=== PATIENT | female | born 1990 | race Caucasian/White ===

== ENCOUNTER 2016-05-20 20:24 | Emergency (ER) | payer SELFPAY ==
[~2016-05-20] VITALS: Ht 162.6 cm; Wt 52.9 kg
--- NOTE | 2016-05-20 20:53 | NUR ---
Left arm 12" around at swollen site. Right arm 8" around approximately same site of left arm.
[2016-05-20] MEDS ORDERED: CLINDAMYCIN 150 MG (CLEOCIN) CAP PO ONE ×2 (21:00→21:10)
[2016-05-20 21:30] VITALS: BP 111/57
== END 2016-05-20 21:31 | disposition home or self-care (01) ==
LOC: ED 20:27
DX: L03.113 Cellulitis of right upper limb (principal)
CPT/HCPCS: 87070; 99283

== ENCOUNTER 2016-05-31 22:58 | Emergency (ER) | payer SELFPAY ==
[~2016-05-31] VITALS: Ht 162.6 cm; Wt 50.0 kg
[2016-06-01] MEDS ORDERED: SODIUM CHLORIDE FLUSH 10 ML SYR IV PRN (00:50)
[2016-06-01] MEDS ORDERED: SODIUM CHLORIDE FLUSH 3 ML SYR IV PRN (00:50)
[2016-06-01] MEDS ORDERED: HYDROcodone/APAP 5 MG/325 MG (NORCO) TAB PO ONE (01:10)
[2016-06-01 01:20] LABS: BASOPHILS % (AUTO) 1 % (0-2); EOSINOPHILS # (AUTO) 0.2 10^3uL; EOSINOPHILS % (AUTO) 2 % (0-4); LYMPHOCYTES # (AUTO) 2.3 X10^3; MEAN CORPUSCULAR HEMOGLOBIN 27.7 PG (26.0-34.0); MEAN CORPUSCULAR HGB CONC 33.4 g/dL (31.0-37.0); MEAN CORPUSCULAR VOLUME 83 FL (80-100); MONOCYTES # (AUTO) 0.6 X10^3; MONOCYTES % (AUTO) 6 % (3-11); NEUTROPHILS # (AUTO) 6.7 X10^3; NEUTROPHILS % (AUTO) 68 % (51-67); PLATELET COUNT 356 10^3uL (150-450); WHITE BLOOD COUNT 9.93 10^3uL (4.0-11.0)
[2016-06-01 01:28] LABS: ALBUMIN 3.8 g/dL (3.4-5.0); ANION GAP 13.4 MEQ/L (3-15); CALCULATED IONIZED CALCIUM 3.8 mg/dL (3.8-4.6); TOTAL PROTEIN 7.6 g/dL (6.4-8.5)
[2016-06-01] MEDS ORDERED: SODIUM CHLORIDE IV ONE (02:10)
[2016-06-01] MEDS ORDERED: DOXYCYCLINE 100 MG (VIBRAMYCIN) TABLET PO ONE (02:10)
[2016-06-01] MEDS ORDERED: CEFTRIAXONE SODIUM IV ONE (02:10)
[2016-06-01 03:27] VITALS: BP 109/51
== END 2016-06-01 03:15 | disposition home or self-care (01) ==
LOC: ED 22:59
DX: L03.115 Cellulitis of right lower limb (principal)
CPT/HCPCS: 36415; 80053; 85025; 87040; 96365; 99283; J0696